=== PATIENT | male | born 1950 | race Caucasian/White ===

== ENCOUNTER 2017-01-28 09:07 | Emergency (ER) | payer MEDICARE, OTHER ==
[~2017-01-28] VITALS: Ht 188 cm; Wt 120.0 kg
[2017-01-28 09:08] VITALS: BP 123/88; PULSE 89; RESP 16; TEMP 98.4; O2SAT 95
[2017-01-28] MEDS ORDERED: KETOROLAC TROMETHAMINE 60 MG/2 ML (IM) VIAL IM ONE (11:00)
[2017-01-28] MEDS ORDERED: ORPHENADRINE INJ 60 MG/2 ML AMP IM ONE (11:00)
[2017-01-28] MEDS ORDERED: AMBI10TA PO (11:34)
[2017-01-28] MEDS ORDERED: NORV2.5T PO (11:34)
[2017-01-28] MEDS ORDERED: PROZ20CA11 PO (11:34)
[2017-01-28] MEDS ORDERED: ZOFR4TAB PO (11:34)
[2017-01-28] MEDS ORDERED: NEUR300C PO (11:34)
[2017-01-28] MEDS ORDERED: TAMS5CAP PO (11:34)
[2017-01-28] MEDS ORDERED: BUME2TAB PO (11:34)
[2017-01-28] MEDS ORDERED: IPRASOL NEB (11:34)
[2017-01-28] MEDS ORDERED: LORA-392 PO (11:34)
[2017-01-28] MEDS ORDERED: OMEP20TA93 PO (11:34)
[2017-01-28] MEDS ORDERED: MONT10TA2 PO (11:34)
[2017-01-28] MEDS ORDERED: MOBI15TA PO (11:34)
[2017-01-28] MEDS ORDERED: TRAM50TA PO (11:34)
[2017-01-28] MEDS ORDERED: SOMA350T PO (11:34)
[2017-01-28] MEDS ORDERED: FENT75DI T-DERMAL (11:34)
[2017-01-28] MEDS ORDERED: TIZA4CAP3 PO (12:06)
[2017-01-28] MEDS ORDERED: MEDR4PAK PO (12:11)
--- NOTE | 2017-01-28 12:11 | PD ---
HPI Chief Complaint: Pain: Acute or Chronic Time Seen by Provider: 10:35 Travel History International Travel<30 days: No Contact w/Intl Traveler<30days: No Traveled to known affect area: No History of Present Illness HPI 66-year-old male complaining of right leg muscle spasms worsening over the last 3 days. States he is due to have a right hip replacement February 19. Patient called Dr. Parekh his orthopedic and he prescribed tramadol and Soma. These medications are not reducing his pain or symptoms. Patient is currently on the fentanyl patch and has taken Soma 350 mg today without relief. Patient states that his pain radiates from his lateral right hip down to his thigh and toes. States that the pain is sometimes sharp but is severe. Patient has trouble sitting still because of the pain and movement of his legs. Patient has fever, chills, trauma, loss of bowel or bladder function, personal history of cancer, weakness, tingling. Of note patient does have asthma and had a severe lung infection last year. PFSH Past Medical History Asthma: Yes Reproductive: Yes (FUNGAL INFECTION IN LUNGS) Respiratory: Yes (ASTHMA) Influenza Vaccination: Yes Past Surgical History Other Surgery: Yes (BACK SURGERY 1994 / ) Social History Alcohol Use: No Tobacco Use: No Substance Use: No Allergies-Medications (Allergen,Severity, Reaction): Coded Allergies: No Known Allergies (Unverified , 01/28/17) Reported Meds & Prescriptions Reported Meds & Active Scripts Active Medrol Dosepak (Methylprednisolone) 4 Mg Dspk 4 Mg PO DIRECTED Per Pharmacist direction Tizanidine (Tizanidine HCl) 4 Mg Cap 4 Mg PO TID 7 Days Avoid all other muscle relaxers while on this medication. Caution with use. Reported Neurontin (Gabapentin) 300 Mg Cap 600 Mg PO HS Duoneb (Ipratropium-Albuterol Neb) 0.5-2.5 Mg/3 Ml Neb 3 Ml NEB Q6HR PRN Flomax (Tamsulosin HCl) 0.4 Mg Cap 0.4 Mg PO HS Ativan (Lorazepam) 0.5 Mg Tab 0.5 Mg PO Q8H Ambien (Zolpidem Tartrate) 10 Mg Tab 10 Mg PO HS Soma (Carisoprodol) 350 Mg Tab 350 Mg PO TID Tramadol (Tramadol HCl) 50 Mg Tab 50 Mg PO Q6H Mobic (Meloxicam) 15 Mg Tab 15 Mg PO DAILY Zofran (Ondansetron HCl) 4 Mg Tab 4 Mg PO Q6HR PRN Prozac (Fluoxetine HCl) 20 Mg Cap 20 Mg PO DAILY Fentanyl Patch 72 HR (Fentanyl) 75 Mcg/Hr Patch 75 Mcg T-DERMAL Q72H Remove old patch when new one placed. Omeprazole 20 Mg Tab 20 Mg PO BID Norvasc (Amlodipine Besylate) 2.5 Mg Tab 2.5 Mg PO DAILY Singulair (Montelukast Sodium) 10 Mg Tab 10 Mg PO HS Bumetanide 2 Mg Tab 2 Mg PO DAILY Review of Systems Except as stated in HPI: all other systems reviewed are Neg Physical Exam Narrative GENERAL: Well-developed well-nourished patient on crutches, appears slightly lethargic SKIN: Focused skin assessment warm/dry. No rash or lesions. HEAD: Atraumatic. Normocephalic. EYES: Pupils equal and round. No scleral icterus. No injection or drainage. ENT: No nasal bleeding or discharge. Mucous membranes pink and moist. NECK: Trachea midline. No JVD. No midline tenderness CARDIOVASCULAR: Regular rate and rhythm. No murmur appreciated. RESPIRATORY: No accessory muscle use. Clear to auscultation. Breath sounds equal bilaterally. GASTROINTESTINAL: Abdomen soft, non-tender, nondistended. Hepatic and splenic margins not palpable. MUSCULOSKELETAL: No obvious deformities. No clubbing. No cyanosis. No edema. Mild tenderness to palpation of the right lateral hip area. Neurovascularly intact. I do not appreciate the muscle spasms patient describes. BACK: No CVA tenderness. No rash. No point tenderness on palpation of the spine. NEUROLOGICAL: Awake and alert. No obvious cranial nerve deficits. Motor grossly within normal limits. Normal speech. PSYCHIATRIC: Appropriate mood and affect; insight and judgment normal. Data Data Last Documented VS Vital Signs Date Time Temp Pulse Resp B/P (MAP) Pulse Ox O2 Delivery O2 Flow Rate FiO2 01/28/17 09:08 98.4 89 16 123/88 (100) 95 Orders Orders Ketorolac Inj (Toradol Inj) (01/28/17 11:00) Orphenadrine Inj (Norflex Inj) (01/28/17 11:00) Lidocaine 5% Patch.12 Hr (Lidoderm 5% Pa (01/28/17 12:15) Ed Discharge Order (01/28/17 12:12) [facility] Medical Decision Making Medical Screen Exam Complete: Yes Emergency Medical Condition: Yes Differential Diagnosis Lumbar radiculopathy versus muscle spasms versus hip contusion Narrative Course 66-year-old male complaining of right leg muscle spasms worsening over the last 3 days. States he is due to have a right hip replacement February 19. Patient called Dr. Parekh his orthopedic and he prescribed tramadol and Soma. These medications are not reducing his pain or symptoms. Patient is currently on the fentanyl patch and has taken Soma 350 mg today without relief. Patient states that his pain radiates from his lateral right hip down to his thigh and toes. States that the pain is sometimes sharp but is severe. Patient has trouble sitting still because of the pain and movement of his leg. Patient has fever, chills, trauma, loss of bowel or bladder function, personal history of cancer, weakness, tingling. Of note patient does have asthma and had a severe lung infection last year. Denies chronic liver, heart, or kidney issues. I explained to patient that this condition can be resolved with orthopedics intervention and that there isn't much more I can do for him. To patient that he should not take both muscle relaxers at the same time as this can cause extreme.drowsiness and falls. Patient to follow up with orthopedics for further treatment and evaluation. And return to ED for persistent or worsening symptoms. Toradol 60 mg, Norflex 60 mg, lidocaine patch applied while in the emergency department with some relief. Patient to go home with Medrol Dosepak and tizanidine. Diagnosis Primary Impression: Muscle spasms of lower extremity Qualified Codes: M62.838 - Other muscle spasm Referrals: Orthopedist Primary Care Physician Additional Instructions: Take medications as prescribed. Do not mix muscle relaxers. Return to the emergency department if you develop worsening or persistent Perform light stretches of the lower back and legs, and alternate heat and ice packs. If you develop increased pain, weakness, fever, chills, or bowel or bladder issues, return to the ED for further treatment and evaluation. Follow up with your primary care physician in 2-3 days. Scripts Methylprednisolone Dosepak (Medrol Dosepak) 4 Mg Dspk 4 MG PO DIRECTED, #1 DSPK 0 Refills Per Pharmacist direction Prov: Suzan Sauer MD 01/28/17 Tizanidine (Tizanidine) 4 Mg Cap 4 MG PO TID for Muscle Spasm for 7 Days, CAP 0 Refills Avoid all other muscle relaxers while on this medication. Caution with use. Prov: Suzan Sauer MD 01/28/17 Disposition: 01 DISCHARGE HOME Condition: Stable Beatriz Roa Jan 28, 2017 12:11
[2017-01-28] MEDS ORDERED: LIDOCAINE HCL 5% PATCH T-DERMAL ONE (12:15)
[2017-02-11] MEDS ORDERED: BUPR150CR PO (12:15)
[2017-02-11] MEDS ORDERED: ATEN50TA PO (12:15)
[2017-02-11] MEDS ORDERED: BENZ1CAP51 PO (12:15)
[2017-02-11] MEDS ORDERED: CYCL10TA PO (12:15)
[2017-02-11] MEDS ORDERED: VENTAER INH (12:15)
[2017-02-11] MEDS ORDERED: SYMB160A INH (12:15)
== END 2017-01-28 12:27 | disposition home or self-care (01) ==
LOC: NEPD 09:07
DX: M62.838 Other muscle spasm (principal); J45.909 Unspecified asthma, uncomplicated
CPT/HCPCS: 96372; 99284; J1885; J2360

== ENCOUNTER → 2017-02-11 | Outpatient (CLI) | payer MEDICARE ==
[~2017-02-11] MED LIST: AMBI10TA PO; ASPI325T33 PO; ATEN50TA PO; BENZ1CAP51 PO; BUME2TAB PO; BUPR150CR PO; COMMODE 3-IN-11 MIS; CYCL10TA PO; FENT75DI T-DERMAL; HYDR-3580 PO; IPRASOL NEB; LORA-392 PO; MEDR4PAK PO; MOBI15TA PO; MONT10TA2 PO; NEUR300C PO; NORV2.5T PO; OMEP20TA93 PO; PROZ20CA11 PO; SOMA350T PO; SYMB160A INH; TAMS5CAP PO; TIZA4CAP3 PO; TRAM50TA PO; VENTAER INH; WALKER WHEELS/F1 MIS; ZOFR4TAB PO
== END ==
LOC: CPRE 11:31
PROVIDERS: ATTEND Orthopaedic Surgery Orthopaedic Surgery of the Spine
DX: Z01.810 Encounter for preprocedural cardiovascular examination (principal); Z01.812 Encounter for preprocedural laboratory examination; M16.11 Unilateral primary osteoarthritis, right hip

== ENCOUNTER 2017-02-19 07:11 | Inpatient (IN) | payer MEDICARE ==
[~2017-02-19] VITALS: Ht 188 cm; Wt 110.1 kg
[~2017-02-19 07:11] MED LIST changes: -ASPI325T33 PO; -BUME2TAB PO; -COMMODE 3-IN-11 MIS; -HYDR-3580 PO; -LORA-392 PO; -MEDR4PAK PO; -MOBI15TA PO; -NEUR300C PO; -SOMA350T PO; -TIZA4CAP3 PO; -WALKER WHEELS/F1 MIS
[2017-02-19] MEDS ORDERED: METOPROLOL TARTRATE 25 MG TAB PO PRN (08:00)
[2017-02-19] MEDS ORDERED: VANCOMYCIN 1000 MG/NS 250 ML (for <70 kg) IV SCH ×2 (08:00)
[2017-02-19] MEDS ORDERED: LACTATED RINGER'S 1000 ML IV PRN (08:00)
[2017-02-19] MEDS ORDERED: POVIDONE IODINE 7.5% SCRUB 118 ML BOTTLE TOPICAL SCH (08:00)
[2017-02-19] MEDS ORDERED: CHLORHEXIDINE GLUCONATE 2 % 1 PACK (2 CLOTHS) TOPICAL PRN (08:00)
[2017-02-19] MEDS ORDERED: INSULIN HUMAN REGULAR 1,000 UNITS/10 ML VIAL SQ PRN (08:00)
[2017-02-19] MEDS ORDERED: POVIDONE IODINE 5% (ANTISEPSIS KIT) 4 APPLICATIONS EACH NARE PRN (08:00)
[2017-02-19] MEDS ORDERED: EXPAREL PERI-ARTICULAR INJECTION (TOTAL VOL. 60 ML) P-ARTICULR SCH ×2 (08:00)
[2017-02-19] MEDS ORDERED: SODIUM CHLORIDE 0.9% IV SCH (08:00)
[2017-02-19] MEDS ORDERED: TRANEXAMIC ACID IV SCH (08:00)
[2017-02-19] MEDS ORDERED: SODIUM CHLORID 0.9% 500 ML IV PRN (08:00)
[2017-02-19] MEDS ORDERED: ceFAZolin 2 GM PREMIX 50 ML IV SCH (08:00)
[2017-02-19] MEDS ORDERED: GENTAMICIN SULFATE 80 MG/2 ML VIAL ONE (09:27)
[2017-02-19] MEDS ORDERED: ACETAMINOPHEN 1000 MG/100 ML 100 ML IV ONE (09:43)
[2017-02-19] MEDS ORDERED: HYDROmorphone HCL PF 2 MG/ML VIAL ONE (09:44)
[2017-02-19] MEDS ORDERED: methylPREDNISolone SOD SUCC 125 MG/2 ML VIAL ONE (10:20)
[2017-02-19] MEDS ORDERED: RESP: ALBUTEROL 2.5 MG/3 ML NEB (SCH) ONE (10:20)
[2017-02-19] MEDS ORDERED: FAMOTIDINE 20 MG/2 ML VIAL ONE (10:20)
[2017-02-19] MEDS ORDERED: ePHEDrine/NS 25 MG/5 ML SYR IV ONE (12:00)
[2017-02-19] MEDS ORDERED: LIDOCAINE HCL 1% PF 5 ML SYRINGE OTHER ONE (12:00)
[2017-02-19] MEDS ORDERED: ONDANSETRON HCL 4 MG/2 ML VIAL IV PUSH ONE (12:00)
[2017-02-19] MEDS ORDERED: DEXAMETHASONE SOD PHOS 4 MG/ML VIAL IV ONE (12:00)
[2017-02-19] MEDS ORDERED: NEOSTIGMINE 3 MG/3 ML SYR IV ONE (12:00)
[2017-02-19] MEDS ORDERED: GLYCOPYRROLATE 1 MG/5 ML SYRINGE IV PUSH ONE (12:00)
[2017-02-19] MEDS ORDERED: MIDAZOLAM HCL 2 MG/2 ML VIAL IV ONE (12:00)
[2017-02-19] MEDS ORDERED: LACTATED RINGER'S 1000 ML INJ 1,000 ML IV ONE (12:00)
[2017-02-19] MEDS ORDERED: PHENYLEPH/NS 1000 MCG/10 ML SYR IV ONE (12:00)
[2017-02-19] MEDS ORDERED: ROCURONIUM INJ 50 MG/5 ML SYRINGE IV PUSH ONE (12:00)
[2017-02-19] MEDS ORDERED: PROPOFOL 200 MG/20 ML AMP IV ONE (12:00)
[2017-02-19] MEDS ORDERED: ACETAMINOPHEN/HYDROcodone 325 MG/7.5 MG TAB PO PRN (13:30)
[2017-02-19] MEDS ORDERED: MISCELLANEOUS PHARMACY INFORMATION XX ONE (13:30)
[2017-02-19] MEDS ORDERED: NALOXONE HCL 0.4 MG/ML AMP IV PUSH PRN (13:30)
[2017-02-19] MEDS ORDERED: MISCELLANEOUS NURSING INFORMATION XX PRN (13:30)
[2017-02-19] MEDS ORDERED: Post-op Orders (for Pharmacy) MISC XX ONE (13:30)
[2017-02-19] MEDS ORDERED: MORPHINE SULFATE 8 MG/ML INJ IM PRN (13:30)
[2017-02-19] MEDS ORDERED: SODIUM CHLORIDE 0.9% FLUSH 10 ML FLUSH IV FLUSH PRN (13:30)
[2017-02-19] MEDS ORDERED: ALBUTEROL SULFATE 90 MCG/ACT HFA 8 GM INHALER INH PRN (13:30)
--- NOTE | 2017-02-19 13:35 | PD.OP ---
cc: Markie Zelaya MD Operative Report Date of Surgery: Feb 19, 2017 Preoperative Diagnosis: Osteoarthritis right hip/avascular necrosis Postoperative Diagnosis: Same Procedure: Right total hip replacement arthroplasty, direct anterior exposure Anesthesia: Gen. Surgeon: Markie Zelaya Visual Lead(s): DONALDO Wadsworth Operation and Findings: EBL: 300 cc INDICATION: This patient presents with significant hip pain related to severe degenerative changes the right hip associated with avascular necrosis with collapse. Despite extensive conservative care this patient continues to be painful and now presents for surgical treatment. NOTE: Crystal Wadsworth PA-C was present for the entire surgical procedure as my certified surgical tech/first assistant. In my medical opinion her skill and care was necessary for the proper management of this patient. COMPONENTS: COMPANY: [employer] CUP: [place], 54 mm, 100 series, gription surface LINER: Altrx 32, neutral STEM: [place], size 13, standard offset, hydroxyapatite-coated HEAD: 32, +9, ceramic, 12/14 taper PROCEDURE: This patient was brought to the operating room and anesthetized in the supine position and positioned on the fracture table with both legs held extended. The right hip and leg was scrubbed with alcohol followed by Hibiclens followed by ChloraPrep and draped sterilely. Antibiotics were given within routine time window and a timeout was done. A 4 inch incision was made starting 2 cm distal and 2 cm lateral to the anterior superior iliac spine. The fascia carlos a was opened longitudinally. The interval between the fascia carlos a and the rectus was opened down to the capsule of the hip joint. Retractors were positioned allowing good visualization of the capsule. This was opened longitudinally and flaps were created. Stay sutures were utilized. Exposure was excellent. The neck was cut at the proper location using fluoroscopy as a guide. The head was removed. Deep retractors were positioned allowing good visualization of the acetabulum. Acetabulum was deepened down to the floor starting with a proper size reamer and reaming up to 53 mm. A trial was utilized. Fluoroscopy was used to check position and confirmed satisfactory alignment. The rim was reamed with a 54 mm reamer and the final cup was positioned in approximately 20 of anteversion and 40-45 of abduction. Position was satisfactory. A single hole eliminator was positioned followed by the final liner. The lifting hook was utilized. The leg was dropped to the floor, maximally externally rotated and brought across the midline. Retractors were positioned. A box osteotome was utilized followed by progressive broaching to the proper stem size. Trial reduction showed excellent alignment and fit. With 60 of external rotation the leg was dropped to the floor without evidence of anterior subluxation. The wound was irrigated. The final stem was inserted and was found to be very stable. The final reduction using the final head. Stability was as previously noted. Intraoperative x-rays were taken. The wound was irrigated copiously. Hemostasis was controlled. Local anesthesia was utilized. The capsule was repaired with #2 Tycron sutures. The fascia carlos a was repaired with running 0 PDS on a loop. Subcutaneous tissue was approximated with 2-0 Vicryl and skin with running intradermal 3-0 Vicryl followed by Steri-Strips. A sterile dressing was applied. The patient was awakened and taken to the recovery room in satisfactory condition. FINDINGS: There was severe changes of the femoral head and complete delamination of the articular cartilage consistent with advanced avascular necrosis with collapse. The femoral head was sent for pathology. The final solution was excellent. Stability was excellent. No complication could be appreciated Markie Zelaya MD Feb 19, 2017 13:35
[2017-02-19] MEDS ORDERED: ASPI325T33 PO (13:37)
[2017-02-19] MEDS ORDERED: HYDR-3580 PO (13:37)
[2017-02-19] MEDS ORDERED: DO NOT ADM ANY ANTICOAGULANT DRUGS PRN (13:56)
[2017-02-19] MEDS ORDERED: *MEPERIDINE 25 MG INJ VIAL PERIprocedural Use ONLY ONE (13:58)
[2017-02-19] MEDS ORDERED: REMOVE OLD PATCH T-DERMAL SCH (14:00)
[2017-02-19] MEDS ORDERED: fentaNYL 75 MCG/HR PATCH T-DERMAL SCH (14:00)
[2017-02-19] MEDS ORDERED: *HYDROmorphone PF 1 MG VIAL PERIprocedural Use ONLY ONE (14:12)
[2017-02-19] MEDS: MORPHINE SULFATE 30 MG/30 ML PCA IV SCH ×2 (14:17→20:42)
[2017-02-19] MEDS ORDERED: *RESP: ALBUTEROL 2.5 MG/3 ML NEB (PRN) PERIprocedural Use ONLY NEB ONE (14:20)
--- NOTE | 2017-02-19 14:20 | RADRPT ---
EXAM DATE/TIME: 02/19/2017 11:48 [facility] COMPARISON: No previous studies available for comparison. INDICATIONS : Right total hip arthroplasty. MEDICAL HISTORY : None. SURGICAL HISTORY : None. ENCOUNTER: Initial ACUITY: 1 day PAIN SCORE: Non-responsive. LOCATION: Right hip FINDINGS: 2 intraprocedure fluoroscopy views of the right hip. There is a right hip arthroplasty in place. Hard red appears intact and in anatomic alignment. No significant acute bony fracture. Surgical clips are seen in the soft tissues. CONCLUSION: 1. Status post right hip arthroplasty in anatomic alignment without significant acute fracture. Sonido Henriquez MD on February 19, 2017 at 14:17 Board Certified Radiologist. This report was verified electronically.
[2017-02-19] MEDS ORDERED: LORazepam 2 MG/ML VIAL ONE (14:29)
[2017-02-19] MEDS ORDERED: PILL SPLITTER OTHER PRN (14:45)
[2017-02-19] MEDS: LACTATED RINGER'S 1000 ML INJ 1,000 ML IV SCH (14:48)
[2017-02-19] MEDS ORDERED: LORazepam 2 MG/ML VIAL IV ONE (15:00)
[2017-02-19 17:30] VITALS: BP 104/55; PULSE 95; RESP 17; TEMP 97; O2SAT 98
[2017-02-19] MEDS: CYCLOBENZAPRINE HCL 10 MG TAB PO SCH (18:38)
[2017-02-19] MEDS: RESP: ALBUTEROL 2.5 MG/IPRATROPIUM 0.5 MG NEB (PRN) NEB (20:23)
[2017-02-19 20:28] VITALS: O2SAT 98
[2017-02-19 20:40] VITALS: BP 100/53; PULSE 91; RESP 18; TEMP 96.8; O2SAT 97
[2017-02-19] MEDS ORDERED: ZOLPIDEM TARTRATE 10 MG TAB PO SCH (21:00)
[2017-02-19] MEDS ORDERED: MONTELUKAST SODIUM 10 MG TAB PO SCH (21:00)
[2017-02-19] MEDS ORDERED: SENNOSIDES 8.6 MG TAB PO SCH (21:00)
[2017-02-19] MEDS ORDERED: TAMSULOSIN HCL 0.4 MG CAP PO SCH (21:00)
[2017-02-19] MEDS ORDERED: WALKER WHEELS/F1 MIS (21:34)
[2017-02-19] MEDS ORDERED: COMMODE 3-IN-11 MIS (21:35)
--- NOTE | 2017-02-19 21:35 | HHI.DCPOC ---
Discharge Care Plan Diagnosis: (1) Osteoarthritis of right hip (2) Avascular necrosis of bone of right hip Your Health Problems Are: Anxiety Difficulty with ADL Incision/Drains Swelling Goals to Promote Your Health * To prevent worsening of your condition and complications * To maintain your health at the optimal level Directions to Meet Your Goals Take your medications as prescribed Follow your dietary instruction Follow activity as directed Keep your appointments as scheduled Take your immunizations and boosters as scheduled If your symptoms worsen call your PCP, if no PCP go to Urgent Care Center or Emergency Room Smoking is Dangerous to Your Health. Avoid second hand smoke Call the 24-hour hour crisis hotline for domestic abuse at [facility] Pham Feb 19, 2017 21:35
--- NOTE | 2017-02-19 21:40 | HHI.FF ---
Face to Face Verification Diagnosis: (1) Osteoarthritis of right hip (2) Avascular necrosis of bone of right hip Physical Therapy Gait training, Safety evaluation, Transfer training, bed to chair Hip: Total hip, Protocol: Right, Progress to weight bearing Right LE Weight Bearing: WB as tolerated Additional Instructions PT 4 days/wk for 2 weeks. WBAT RLE. Anterior JACQUI precautions. Walker for assistance. Gait training. Nursing RN Days per Week: 2 x Week(s): 11 Dressing Changes: Do not change dressing Additional Instructions Vitals assessment. Dressing assessment - do not change unless saturated or erythema. I have seen patient Angel Howard on 02/19/17. My clinical findings support the need for the requested home health care services because: Limited ability to care for self High risk of falls I certify that my clinical findings support that this patient is homebound because: Post-op weakness Unsteady gait/balance Laurel Pham Feb 19, 2017 21:40
[2017-02-19] MEDS: buPROPion HCL 150 MG SUSTAINED RELEASE TAB PO SCH (21:44)
[2017-02-19] MEDS: PANTOPRAZOLE SOD 20 MG DELAYED RELEASE TAB PO SCH (21:44)
[2017-02-19] MEDS: MAGNESIUM HYDROXIDE SUSP 30 ML CUP PO SCH (21:44)
[2017-02-19] MEDS: ASPIRIN EC 325 MG TABEC PO SCH (21:44)
--- NOTE | 2017-02-19 21:44 | HHI.DS ---
Discharge Summary Admission Date Feb 19, 2017 at 07:11 Discharge Date: Feb 21, 2017 Admitting Diagnosis see below Diagnosis: (1) Osteoarthritis of right hip Diagnosis: Principal ICD Codes: M16.11 - Unilateral primary osteoarthritis, right hip (2) Avascular necrosis of bone of right hip Diagnosis: Principal ICD Codes: M87.051 - Idiopathic aseptic necrosis of right femur Procedures Right total hip arthroplasty, Direct anterior approach Brief History This is a 66 year old male patient Hospital Course pod#1 hhc. [place] 7.5. Pt already on fentanyl. ASA 325 2 tabs. Pt Condition on Discharge: Stable Discharge Disposition: Disch w/ Home Health Serv Discharge Instructions Diet Instructions: As Tolerated, No Restrictions, High Fiber Diet Activities You Can Perform: Weight Bearing as Priscilla Activities to Avoid: Strenuous Activity Additional Activity Instruc.: R JACQUI, anterior precautions New Medications: Commode 3-in-1 (Commode 3-in-1) 1 Mis Mis EA .ROUTE DIRECTED, #1 0 Refills Walker with Front Wheels (Walker with Front Wheels) 1 Mis Mis EA .ROUTE DIRECTED, #[address] (Aspirin EC) 325 Mg Tabdr 325 MG PO BID for Prevent Blood Clot for 30 Days, #60 TAB Hydrocodone/Acetaminophen (Hydrocodone-Acetamin 7.5-325) 7.5 Mg-325 Mg Tablet 1 TAB PO Q4H PRN for PAIN, #50 TAB Continued Medications: Albuterol 18 GM Inh (Ventolin Hfa 18 GM Inh) 90 Mcg/Act Aer 2 PUFF INH Q6H PRN for SHORTNESS OF BREATH, #1 INHALER 0 Refills Amlodipine (Norvasc) 2.5 Mg Tab 2.5 MG PO DAILY for Blood Pressure Management, #30 TAB 0 Refills Atenolol (Atenolol) 50 Mg Tab 50 MG PO DAILY for Blood Pressure Management, #30 TAB 0 Refills Budesonide-Formoterol Inh (Symbicort Inh) 160-4.5 Mcg/Act Aero 1 PUFF INH Q12HR, #1 INHALER 0 Refills Bupropion HCl ER 12 HR (Wellbutrin SR 12 HR) 150 Mg Tab 150 MG PO Q12HR for Control Depression, TAB 0 Refills Cyclobenzaprine (Flexeril) 10 Mg Tab 10 MG PO TID for Muscle Spasm, #90 TAB 0 Refills Fentanyl Patch 72 HR (Fentanyl Patch 72 HR) 75 Mcg/Hr Patch 75 MCG T-DERMAL Q72H for Pain Management, #10 PATCH 0 Refills Remove old patch when new one placed. Fluoxetine (Prozac) 20 Mg Cap 20 MG PO DAILY, #30 CAP 0 Refills Ipratropium-Albuterol Neb (Duoneb) 0.5-2.5 Mg/3 Ml Neb 3 ML NEB Q6HR PRN for SHORTNESS OF BREATH, #30 NEBULE 0 Refills Montelukast (Singulair) 10 Mg Tab 10 MG PO HS, #30 TAB 0 Refills Omeprazole (Omeprazole) 20 Mg Tab 20 MG PO BID for GERD, #30 TAB 0 Refills Ondansetron (Zofran) 4 Mg Tab 4 MG PO Q6HR PRN for NAUSEA OR VOMITING, TAB 0 Refills Tamsulosin (Flomax) 0.4 Mg Cap 0.4 MG PO HS for Manage Prostate Problems, #30 CAP 0 Refills Tramadol (Tramadol) 50 Mg Tab 50 MG PO Q6H for Pain Management, TAB 0 Refills Zolpidem (Ambien) 10 Mg Tab 10 MG PO HS, TAB 0 Refills Laurel Pham Feb 19, 2017 21:44
[2017-02-19] MEDS: SODIUM CHLORIDE 0.9% FLUSH 10 ML FLUSH IV FLUSH SCH (21:45)
[2017-02-19] MEDS: BUDESONIDE-FORMOTEROL 160/4.5 MCG INHALER INH SCH (21:45)
[2017-02-19] MEDS: PCA - TOTAL MG MORPHINE DELIVERED PER SHIFT SCH (22:00)
[2017-02-19 23:25] VITALS: BP 113/61; PULSE 81; RESP 17; TEMP 96.7; O2SAT 95
[2017-02-20 04:45] VITALS: BP 106/57; PULSE 82; RESP 18; TEMP 96.7; O2SAT 96
[2017-02-20] MEDS: LACTATED RINGER'S 1000 ML INJ 1,000 ML IV SCH (05:10)
[2017-02-20] MEDS: PCA - TOTAL MG MORPHINE DELIVERED PER SHIFT SCH (06:00)
[2017-02-20 06:38] LABS: HEMATOCRIT 27.2 % (39.0-51.0); REVIEW FLAG FINAL
[2017-02-20 08:00] VITALS: BP 109/57; PULSE 86; RESP 18; TEMP 96.7; O2SAT 98
[2017-02-20] MEDS: PANTOPRAZOLE SOD 20 MG DELAYED RELEASE TAB PO SCH (08:33)
[2017-02-20] MEDS: CYCLOBENZAPRINE HCL 10 MG TAB PO SCH ×2 (08:33→13:00)
[2017-02-20] MEDS: ASPIRIN EC 325 MG TABEC PO SCH (08:33)
[2017-02-20] MEDS: MAGNESIUM HYDROXIDE SUSP 30 ML CUP PO SCH (08:35)
[2017-02-20] MEDS: buPROPion HCL 150 MG SUSTAINED RELEASE TAB PO SCH (08:35)
[2017-02-20] MEDS ORDERED: ATENOLOL 50 MG TAB PO SCH (09:00)
[2017-02-20] MEDS ORDERED: amLODIPine BESYLATE 5 MG TAB PO SCH (09:00)
[2017-02-20] MEDS ORDERED: FLUoxetine HCL 20 MG CAP PO SCH (09:00)
[2017-02-20] MEDS: BUDESONIDE-FORMOTEROL 160/4.5 MCG INHALER INH SCH (09:00)
[2017-02-20] MEDS: SODIUM CHLORIDE 0.9% FLUSH 10 ML FLUSH IV FLUSH SCH (09:00)
[2017-02-20] MEDS: ACETAMINOPHEN/HYDROcodone 325 MG/7.5 MG TAB PO PRN ×2 (10:05→13:34)
[2017-02-20 11:54] VITALS: BP 106/53; PULSE 90; RESP 18; TEMP 96.5; O2SAT 94
[2017-02-20] MEDS: RESP: ALBUTEROL 2.5 MG/IPRATROPIUM 0.5 MG NEB (PRN) NEB (12:45)
[2017-02-20 12:46] VITALS: O2SAT 95
--- NOTE | 2017-02-20 13:23 | PD.ORT.PN ---
Subjective Subjective Remarks Doing well. Moderate right hip pain but PO meds help. He just finished a breathing treatment. He states he is urinating and passing gas. Appetite is returning. Prefers discharge home today. No complaints of new chest pain or shortness of breath. Objective Vitals Vital Signs Date Time Temp Pulse Resp B/P (MAP) Pulse Ox O2 Delivery O2 Flow Rate FiO2 02/20/17 12:46 95 02/20/17 11:54 96.5 90 18 106/53 (70) 94 02/20/17 11:05 18 02/20/17 08:00 96.7 86 18 109/57 (74) 98 02/20/17 06:00 17 02/20/17 04:45 96.7 82 18 106/57 (73) 96 02/19/17 23:25 96.7 81 17 113/61 (78) 95 02/19/17 23:05 Nasal Cannula 2.00 02/19/17 22:00 18 02/19/17 21:42 17 02/19/17 20:42 18 02/19/17 20:40 96.8 91 18 100/53 (69) 97 02/19/17 20:28 98 Nasal Cannula 2.00 02/19/17 17:30 97.0 95 17 104/55 (71) 98 02/19/17 16:48 98.3 80 14 115/59 (77) 96 Nasal Cannula 2 02/19/17 16:00 84 12 115/59 (77) 96 Nasal Cannula 2 02/19/17 15:00 87 14 111/62 (78) 97 Nasal Cannula 2 02/19/17 14:45 85 19 114/63 (80) 96 Nasal Cannula 2 02/19/17 14:30 89 20 103/60 (74) 99 Nasal Cannula 2 02/19/17 14:17 15 02/19/17 14:15 86 15 102/56 (71) 98 Nasal Cannula 2 02/19/17 14:00 84 18 129/68 (88) 99 Nasal Cannula 2 02/19/17 13:54 98.3 90 19 122/59 (80) 96 Nasal Cannula 2 I/O 02/19/17 02/19/17 02/19/17 02/20/17 02/20/17 02/20/17 07:00 15:00 23:00 07:00 15:00 23:00 Intake Total 1800 ml 709 ml 1224 ml Output Total 3900 ml 500 ml 400 ml Balance -2100 ml 209 ml 824 ml Intake Oral 380 ml 240 ml IV Total 1800 ml 329 ml 984 ml Output Urine Total 400 ml 500 ml 400 ml Estimated Blood Loss 500 ml Other 3000 ml # Bowel Movements 0 0 Result Diagram: 02/20/17 0617 Procedures Right total hip arthroplasty, Direct anterior approach Objective Remarks Sitting up in chair, at bedside NAD VSS RLE Dressing c/d/i, minimal SS drainage, mild swelling thigh, no erythema good sensation distal, +motor at, Neg homans distal Assessment & Plan Ortho Post Op Day #: 1 Problem List: (1) Osteoarthritis of right hip ICD Codes: M16.11 - Unilateral primary osteoarthritis, right hip Qualifiers: Qualified Codes: M16.11 - Unilateral primary osteoarthritis, right hip (2) Avascular necrosis of bone of right hip ICD Codes: M87.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 Ok to d/c home w hhc later today is patient does well w PT. is somewhat concerned about discharge today - if any struggle with PT will discharge tomorrow am. PT - WBAT RLE. Anterior JACQUI precautions. ASA 325 mg 2 tabs daily for dvt prophylaxis. Hold dressing changes unless saturated. F/U in 2 weeks as scheduled. DME and F2F written. Laurel Pham Feb 20, 2017 13:23
[2017-02-20] MEDS ORDERED: CYCLOBENZAPRINE HCL 10 MG TAB PO PRN (13:30)
[2017-02-20 15:29] VITALS: BP 125/66; PULSE 92; RESP 17; TEMP 97.4; O2SAT 96
[2017-02-22] MEDS ORDERED: fentaNYL 75 MCG/HR PATCH T-DERMAL SCH (14:00)
== END 2017-02-20 15:47 | disposition home health service (06) | DRG 470 ==
LOC: HSDI 07:11 → N06A 17:11
PROVIDERS: ADMIT Orthopaedic Surgery Orthopaedic Surgery of the Spine; ATTEND Orthopaedic Surgery Orthopaedic Surgery of the Spine
PROC: 0SR904A Replacement of Right Hip Joint with Ceramic on Polyethylene Synthetic Substitute, Uncemented, Open Approach (ICD-10-PCS; principal; 2017-02-19 11:20)
DX: M16.11 Unilateral primary osteoarthritis, right hip (principal); M87.051 Idiopathic aseptic necrosis of right femur; F41.9 Anxiety disorder, unspecified
CPT/HCPCS: 73502; 76000; 85014; 85018; 86850; 86900; 86901; 86920; 88305; 88311; 94150; 94640; 94664; C1776; C9290; J0131; J0690; J1100; J1170; J1580; J2060; J2175; J2250; J2270; J2370; J2405; J2710; J2930; J3010; J3370; J7050; J7120; J7613